=== PATIENT | male | born 1990 | race Caucasian/White ===

== ENCOUNTER 2024-09-23 17:38 | Inpatient (IN) | payer BC, MEDICAID ==
[~2024-09-23] VITALS: Ht 177.8 cm; Wt 82.1 kg
[2024-09-23 19:10] LABS: BASOPHILS % (AUTO) 0.6 % (0.0-2.0); EOSINOPHILS % (AUTO) 2.4 % (1.0-6.0); HEMATOCRIT 47.9 % (41-53); HEMOGLOBIN 16.7 g/dL (13.5-17.5); LYMPHOCYTES # (AUTO) 1.4 K/uL (1.0-4.8); LYMPHOCYTES % (AUTO) 15.9 % (22.0-44.0); MEAN CORPUSCULAR HEMOGLOBIN 31.4 pg (26.0-34.0); MEAN CORPUSCULAR HGB CONC 34.8 G/dL (31.0-37.0); MEAN CORPUSCULAR VOLUME 90 fL (80-100); MONOCYTES # (AUTO) 0.6 K/uL (0.1-1.0); MONOCYTES % (AUTO) 6.6 % (2.0-9.0); NEUTROPHILS # (AUTO) 6.5 K/uL (1.8-7.7); NEUTROPHILS % (AUTO) 74.5 % (40.0-70.0); PLATELET COUNT (AUTO) 237 K/uL (150-450); RED CELL DISTRIBUTION WIDTH 12.8 % (11.5-14.5); WHITE BLOOD COUNT (AUTO) 8.7 K/uL (4.5-11.0)
[2024-09-23 19:15] LABS: ANION GAP 8 mmol/L (8-16); CALCIUM, TOTAL 8.9 mg/dL (8.8-10.5); CARBON DIOXIDE 30 mmol/L (22-29); CHLORIDE 101 mmol/L (98-107); CREATININE 1.02 mg/dL (0.60-1.30); GLOMERULAR FILTR. RATE CALC > 60 mL/min (>60); GLUCOSE,RANDOM 99 mg/dL (70-110); POTASSIUM 3.7 mmol/L (3.5-5.1); SODIUM SERUM 139 mmol/L (136-145); UREA NITROGEN, BLOOD 7 mg/dL (7-18)
[2024-09-23 19:25] LABS: TROPONIN I-HIGH SENSITIVITY 7 ng/L (<76)
[2024-09-23 20:02] LABS: APPEARANCE,URINE CLEAR (CLEAR); BILIRUBIN,URINE NEGATIVE (NEGATIVE); COLOR,URINE LIGHT YELLOW (YELLOW); GLUCOSE, URINE (UA) NEGATIVE (NEGATIVE); KETONES,URINE NEGATIVE (NEGATIVE); LEUKOCYTE ESTERASE ,URINE NEGATIVE (NEGATIVE); NITRATE,URINE NEGATIVE (NEGATIVE); OCCULT BLOOD,URINE NEGATIVE (NEGATIVE); PROTEIN,URINE NEGATIVE (NEGATIVE); SPECIFIC GRAVITIY, URINE 1.008 (1.003-1.030); UROBILINOGEN,URINE <=1.0 mg/dL (<=1.0)
[2024-09-24] MEDS ORDERED: LANO113C6 TP (00:11)
[2024-09-24] MEDS ORDERED: DIPH-1243 PO (00:11)
[2024-09-24] MEDS ORDERED: BENZ0.5T52 PO (00:11)
[2024-09-24] MEDS ORDERED: DEXT1TAB PO (00:11)
[2024-09-24] MEDS ORDERED: PALI6TAB15 PO (00:12)
[2024-09-24] MEDS ORDERED: OLAN5TAB52 PO (00:12)
[2024-09-24] MEDS ORDERED: LAMO25TA36 PO (00:12)
[2024-09-24] MEDS ORDERED: CLON-595 PO (00:12)
[2024-09-24] MEDS ORDERED: IBUP-1506 PO (00:12)
[2024-09-24] MEDS ORDERED: OLAN10TA74 PO (00:12)
[2024-09-24] MEDS ORDERED: MAG30ORA11 PO (00:12)
[2024-09-24] MEDS ORDERED: PALI156D IM (00:12)
[2024-09-24] MEDS ORDERED: MAGN-169 PO (00:12)
[2024-09-24 03:04] LABS: COVID AG,FIA SOURCE NASAL SWAB
[2024-09-24 03:17] LABS: SARS-COV2 (COVID) ANTIGEN,FIA Negative (Negative)
[2024-09-24 05:52] LABS: ALCOHOL, URINE DRUG SCREEN NEGATIVE (NEGATIVE); AMPHET/METH SCREEN,URINE NEGATIVE (NEGATIVE); BARBITURATE SCREEN, URINE NEGATIVE (NEGATIVE); BENZODIAZEPINES SCREEN,URINE NEGATIVE (NEGATIVE); CANNABINOID SCREEN,URINE NEGATIVE (NEGATIVE); COCAINE SCREEN,URINE NEGATIVE (NEGATIVE); METHADONE SCREEN, URINE NEGATIVE (NEGATIVE); OPIATE SCREEN,URINE NEGATIVE (NEGATIVE); PHENCYCLIDINE SCREEN,URINE NEGATIVE (NEGATIVE)
[2024-09-24] MEDS ORDERED: ZOLPIDEM TARTRATE 10 MG TABLET PO PRN (06:00)
[2024-09-24] MEDS ORDERED: haloperidoL 5 MG TABLET PO PRN (06:00)
[2024-09-24] MEDS: ACETAMINOPHEN 325 MG TABLET PO ONE (08:02)
[2024-09-24] MEDS: LORazepam 2 MG TABLET PO PRN (08:02)
[2024-09-24] MEDS: ONDANSETRON 4 MG RAPDIS TABLET PO ONE (08:02)
[2024-09-24] MEDS: TAMSULOSIN HCL 0.4 MG CAPSULE PO ONE (10:03)
[2024-09-24 10:39] VITALS: O2SAT 98
[2024-09-24 11:31] VITALS: BP 162/98; PULSE 96; RESP 18; TEMP 98.3; O2SAT 97
[2024-09-24 13:05] VITALS: BP 148/67; PULSE 89; RESP 18; TEMP 98.3; O2SAT 98
[2024-09-24] MEDS ORDERED: GuaiFENesin/D-METHORPHAN [SUGAR-FREE] 200-20MG/10 ML SYRUP UDCUP PO PRN ×2 (13:30)
[2024-09-24] MEDS ORDERED: CloNIDine HCL 0.1 MG TABLET PO PRN ×2 (13:30)
[2024-09-24] MEDS ORDERED: MAGNESIUM HYDROXIDE SUSPENSION 30 ML UDCUP PO PRN ×2 (13:30)
[2024-09-24] MEDS ORDERED: ACETAMINOPHEN 325 MG TABLET PO PRN ×2 (13:30)
[2024-09-24] MEDS ORDERED: ONDANSETRON 4 MG TABLET PO PRN (13:30)
[2024-09-24] MEDS ORDERED: NICOTINE 14 MG/24 HOUR PATCH TD PRN ×2 (13:30)
[2024-09-24] MEDS ORDERED: MAG HYDROX/ALUMINUM HYD/SIMETH ES 30 ML SUSPENSION UDCUP PO PRN ×2 (13:30)
[2024-09-24] MEDS ORDERED: LOPERAMIDE HCL 2 MG CAPSULE PO PRN ×2 (13:30)
[2024-09-24] MEDS ORDERED: ALBUTEROL SULFATE HFA 90 MCG/PUFF 8 GM INHALER IH PRN ×2 (13:30)
[2024-09-24] MEDS ORDERED: IBUPROFEN 400 MG TABLET PO PRN (13:30)
[2024-09-24] MEDS ORDERED: DOCUSATE SODIUM 100 MG CAPSULE PO PRN ×2 (13:30)
[2024-09-24] MEDS ORDERED: PETROLATUM,WHITE 28 GM JELLY TP PRN ×2 (13:30)
[2024-09-24] MEDS: ClonazePAM 1 MG TABLET PO SCH (16:22)
[2024-09-24] MEDS: BENZTROPINE MESYLATE 0.5 MG TABLET PO SCH (16:22)
[2024-09-24 20:28] VITALS: BP 129/78; PULSE 80; RESP 17; TEMP 98.6; O2SAT 94
[2024-09-24] MEDS: OLANZapine 10 MG TABLET PO SCH (21:57)
[2024-09-25 09:02] LABS: BASOPHILS % (AUTO) 0.5 % (0.0-2.0); EOSINOPHILS % (AUTO) 5.4 % (1.0-6.0); HEMATOCRIT 48.7 % (41-53); HEMOGLOBIN 16.7 g/dL (13.5-17.5); LYMPHOCYTES # (AUTO) 2.1 K/uL (1.0-4.8); LYMPHOCYTES % (AUTO) 20.5 % (22.0-44.0); MEAN CORPUSCULAR HEMOGLOBIN 31.1 pg (26.0-34.0); MEAN CORPUSCULAR HGB CONC 34.3 G/dL (31.0-37.0); MEAN CORPUSCULAR VOLUME 91 fL (80-100); MONOCYTES # (AUTO) 0.7 K/uL (0.1-1.0); MONOCYTES % (AUTO) 7.1 % (2.0-9.0); NEUTROPHILS # (AUTO) 6.7 K/uL (1.8-7.7); NEUTROPHILS % (AUTO) 66.5 % (40.0-70.0); PLATELET COUNT (AUTO) 227 K/uL (150-450); RED BLOOD CELL COUNT(AUTO) 5.37 MIL/uL (4.50-5.90); RED CELL DISTRIBUTION WIDTH 12.7 % (11.5-14.5); WHITE BLOOD COUNT (AUTO) 10.1 K/uL (4.5-11.0)
[2024-09-25 09:14] LABS: HEMOGLOBIN A1C 4.7 % (3.8-5.6)
[2024-09-25 09:19] VITALS: BP 134/85; PULSE 103; RESP 17; TEMP 97.5; O2SAT 96
[2024-09-25] MEDS: LamoTRIgine 25 MG TABLET PO SCH (09:55)
[2024-09-25 11:06] LABS: POTASSIUM 3.5 mmol/L (3.5-5.1); SODIUM SERUM 139 mmol/L (136-145)
[2024-09-25 11:07] LABS: ALANINE AMINOTRANSFERASE 79 U/L (12-78); ALBUMIN 4.2 g/dL (3.4-5.0); ALKALINE PHOSPHATASE 91 U/L (46-116); ANION GAP 13 mmol/L (8-16); ASPARTATE AMINOTRANSFERASE 32 U/L (15-37); BILIRUBIN,TOTAL 0.8 mg/dL (0.1-1.0); CALCIUM, TOTAL 8.9 mg/dL (8.8-10.5); CARBON DIOXIDE 25 mmol/L (22-29); CHLORIDE 101 mmol/L (98-107); CREATININE 1.11 mg/dL (0.60-1.30); GLOMERULAR FILTR. RATE CALC > 60 mL/min (>60); GLUCOSE,RANDOM 104 mg/dL (70-110); TOTAL PROTEIN, SERUM 7.5 g/dL (6.4-8.2); TRIGLYCERIDES 52 mg/dL (15-150); UREA NITROGEN, BLOOD 12 mg/dL (7-18)
[2024-09-25 11:08] LABS: CHOL/HDL RATIO 3.3 (4.2-7.3); CHOLESTEROL 156 mg/dL (131-200); HDL CHOLESTEROL 48 mg/dL (40-60); LDL CHOL (CALC.) 98 mg/dL (0-130)
[2024-09-25] MEDS: TraMADol HCL 50 MG TABLET PO ONE (18:02)
[2024-09-25 21:04] VITALS: BP 123/91; PULSE 109; RESP 16; TEMP 97.1; O2SAT 97
[2024-09-26 09:08] VITALS: BP 121/88; PULSE 68; RESP 18; O2SAT 97
[2024-09-26 09:08] LABS: TROPONIN I-HIGH SENSITIVITY 6 ng/L (<76)
[2024-09-26 20:27] VITALS: BP 132/82; PULSE 100; RESP 17; TEMP 97.7; O2SAT 98
[2024-09-27 09:06] VITALS: BP 116/84; PULSE 100; RESP 17; TEMP 98; O2SAT 98
[2024-09-27] MEDS: ONDANSETRON 4 MG TABLET PO PRN (12:50)
[2024-09-27 16:49] VITALS: BP 124/86; PULSE 98; RESP 18
[2024-09-27] MEDS: IBUPROFEN 400 MG TABLET PO PRN (16:52)
[2024-09-27 17:52] VITALS: RESP 18
[2024-09-27 20:38] VITALS: BP 124/86; PULSE 97; RESP 17; TEMP 97.8; O2SAT 97
[2024-09-28 07:56] LABS: APPEARANCE,URINE CLEAR (CLEAR); BILIRUBIN,URINE NEGATIVE (NEGATIVE); COLOR,URINE LIGHT YELLOW (YELLOW); GLUCOSE, URINE (UA) NEGATIVE (NEGATIVE); KETONES,URINE NEGATIVE (NEGATIVE); LEUKOCYTE ESTERASE ,URINE NEGATIVE (NEGATIVE); NITRATE,URINE NEGATIVE (NEGATIVE); OCCULT BLOOD,URINE NEGATIVE (NEGATIVE); PH,URINE 6.5 (5.0-8.0); PROTEIN,URINE NEGATIVE (NEGATIVE); SPECIFIC GRAVITIY, URINE 1.015 (1.003-1.030); UROBILINOGEN,URINE <=1.0 mg/dL (<=1.0)
[2024-09-28 09:15] VITALS: BP 126/76; PULSE 89; RESP 17; TEMP 98.1; O2SAT 100
[2024-09-28] MEDS ORDERED: PEG 400/HYPROMELLOSE/GLYCERIN 15 ML OPHTHALMIC SOLUTION OU PRN (12:00)
[2024-09-28 20:26] VITALS: BP 124/77; PULSE 72; RESP 18; TEMP 97.9; O2SAT 97
[2024-09-29 08:31] VITALS: BP 122/73; PULSE 90; RESP 17; TEMP 97.3; O2SAT 98
[2024-09-29 20:33] VITALS: BP 139/77; PULSE 89; RESP 17; TEMP 97.7; O2SAT 97
[2024-09-30 09:24] VITALS: BP 116/84; PULSE 98; RESP 16; TEMP 97.3; O2SAT 98
== END 2024-09-30 12:52 | disposition left against medical advice (07) | DRG 885 ==
LOC: EMS 17:38 → B2S 09-24 09:04
PROVIDERS: ADMIT Psychiatry & Neurology Child & Adolescent Psychiatry; ATTEND Psychiatry & Neurology Child & Adolescent Psychiatry
PROC: GZHZZZZ Group Psychotherapy (ICD-10-PCS; principal; 2024-09-24)
PROC: GZ52ZZZ Individual Psychotherapy, Cognitive (ICD-10-PCS; 2024-09-24)
DX: F25.0 Schizoaffective disorder, bipolar type (principal); I11.0 Hypertensive heart disease with heart failure; Z20.822 Contact with and (suspected) exposure to COVID-19; F15.90 Other stimulant use, unspecified, uncomplicated; F43.10 Post-traumatic stress disorder, unspecified; F84.0 Autistic disorder; I50.9 Heart failure, unspecified; N20.0 Calculus of kidney; Z79.899 Other long term (current) drug therapy; Z87.820 Personal history of traumatic brain injury; F90.9 Attention-deficit hyperactivity disorder, unspecified type; F10.10 Alcohol abuse, uncomplicated; Y90.9 Presence of alcohol in blood, level not specified; F41.1 Generalized anxiety disorder
CPT/HCPCS: 71045; 76770; 80048; 80053; 80061; 80307; 81003; 83036; 84436; 84443; 84484; 85025; 93005; 99285; Q0162; 36415-L1; 36415-TC